=== PATIENT | male | born 1970 | race Caucasian/White ===

== ENCOUNTER 2022-07-07 11:46 | Emergency (ER) | payer SELFPAY ==
[2022-07-07 12:31] VITALS: BP 159/102; PULSE 112
[2022-07-07] MEDS ORDERED: Ondansetron 4 MG/2 ML SDV IVPUSH ONE (12:36)
[2022-07-07] MEDS ORDERED: Lactated Ringers 1,000 ML IV STA (12:36)
[2022-07-07 14:07] LABS: CARBON DIOXIDE,CO2 27.9 mmol/L (21.0-32.0); POTASSIUM,K 3.1 mmol/L (3.5-5.1)
[2022-07-07 14:09] LABS: CORONAVIRUS COVID-19 NAA NEGATIVE (NEGATIVE); INFLUENZA A NAA NEGATIVE (NEGATIVE); INFLUENZA B NAA NEGATIVE (NEGATIVE)
[2022-07-07] MEDS ORDERED: Potassium Chloride 10% 20 MEQ/15 ML Soln 30 ML UD Cup PO ONE (14:43)
[2022-07-07] MEDS ORDERED: Magnesium Oxide 400 MG Tab PO ONE (14:43)
== END 2022-07-07 15:00 | disposition left against medical advice (07) ==
LOC: MW.ED 11:46
DX: K70.10 Alcoholic hepatitis without ascites (principal); E87.6 Hypokalemia; E83.42 Hypomagnesemia; I10 Essential (primary) hypertension; K21.9 Gastro-esophageal reflux disease without esophagitis; Z72.0 Tobacco use; Z79.899 Other long term (current) drug therapy; Z20.822 Contact with and (suspected) exposure to COVID-19
CPT/HCPCS: 0240U; 36415; 80053; 83605; 83735; 84484; 85025; 85610; 93005; 96361; 96374; 99284; J2405; J7120

== ENCOUNTER 2022-07-10 13:17 | Emergency (ER) | payer SELFPAY ==
[2022-07-10] MEDS ORDERED: Ondansetron 4 MG/2 ML SDV IVPUSH ONE (14:42)
[2022-07-10] MEDS ORDERED: Lactated Ringers 1,000 ML IV STA (14:42)
[2022-07-10 15:27] LABS: CARBON DIOXIDE,CO2 28.2 mmol/L (21.0-32.0); POTASSIUM,K 3.3 mmol/L (3.5-5.1)
[2022-07-10] MEDS ORDERED: Potassium Chloride 10% 20 MEQ/15 ML Soln 30 ML UD Cup PO ONE (15:33)
[2022-07-10] MEDS ORDERED: Magnesium Oxide 400 MG Tab PO ONE (15:36)
[2022-07-10] MEDS ORDERED: Sodium Chloride 0.9% 1,000 ML IV SCH (15:45)
[2022-07-10 16:49] VITALS: BP 126/87; PULSE 111
[2022-07-10 18:19] LABS: CORONAVIRUS COVID-19 NAA NEGATIVE (NEGATIVE); INFLUENZA A NAA NEGATIVE (NEGATIVE); INFLUENZA B NAA NEGATIVE (NEGATIVE)
== END 2022-07-10 17:06 | disposition left against medical advice (07) ==
LOC: MW.ED 13:17
DX: R11.2 Nausea with vomiting, unspecified (principal); Z53.29 Procedure and treatment not carried out because of patient's decision for other reasons
CPT/HCPCS: 0240U; 36415; 80053; 83690; 85025; 96361; 96374; 99283; A9270; J2405; J7030; J7120